=== PATIENT | female | born 1970 | race Caucasian/White ===

== ENCOUNTER → 2017-07-24 | Outpatient (CLI) | payer OTHER ==
[~2017-07-24] VITALS: Ht 167.6 cm; Wt 93.0 kg
[~2017-07-24] MED LIST: ADVAIR 100-501 EACH INH; ALLEGRA ALLERG180 MG PO; AZELASTINE137 MCG/0. NASAL; NEXIUM40 MG PO; SINGULAIR 10 MG10 M1 PO; SYMBICORT160 MCG/4. INH; SYNTHROID150 MCG PO; WELLBUTRIN SR150 MG PO
--- NOTE | ~2017-07-24 | S ---
[facility] [place] [address] SURGICAL PATH RPT PROCEDURE Name: COURTNEY AMADOR Room #: REG [facility].#: [id number] Admission: 07/24/17 Date of : 70 Discharge: Report #: [id number] Path Case #: [id number] PATHOLOGY REPORT COLLECTION DATE: 07/24/2017 RECEIVED DATE: 07/24/2017 SUBMITTING PHYS: Dr. Liborio Hernandez OTHER PHYS: Dr. Artem Garcia SPECIMEN(S) RECEIVED: A.Gastric body rule out H pylori B.Distal esophagus * * * * * * * * * * * * FINAL DIAGNOSIS: A. Gastric mucosa, gastric body rule out H. pylori, endoscopic biopsy: - Moderate reactive gastropathy. - Negative for intestinal metaplasia or atrophy. - Negative for Helicobacter pylori. B. Distal esophagus, rule out Baptiste's, endoscopic biopsy: - Dilated fundic glands compatible with fundic gland polyp as well as focal hyperplastic features. - Negative for intestinal metaplasia (Baptiste's mucosa) or dysplasia. COMMENT: Well-controlled Helicobacter pylori immunohistochemical stain performed on block A1 - negative. (IUV:mml; 07/25/2017) PATHOLOGIST: Katerina Moore M.D. REPORT ELECTRONICALLY SIGNED BY: Katerina Moore M.D. DATE/TIME: 07/25/2017 16:34 * * * * * * * * * * * * GROSS PATHOLOGY: A. Received in formalin labeled "Courtney Marjorie, gastric body, rule out H. pylori," is a segment of villeda soft tissue measuring 0.4 cm in maximum dimension. The specimen is submitted entirely in cassette A1. B. Received in formalin labeled "Courtney Amador, distal esophagus BX, rule out Baptiste's," are 2 segments of villeda soft tissue measuring 0.6 x 0.3 x 0.2 cm in aggregate dimensions and measuring 0.3 cm each in maximum dimension. The specimen is submitted entirely in cassette B1. (TSD; 07/24/2017) [address] [place] [address] SURGICAL PATH RPT PROCEDURE Name: COURTNEY AMADOR Room #: REG [facility].#: [id number] Admission: 07/24/17 Date of : 70 Discharge: Report #: [id number] Path Case #: [id number] CLINICAL HISTORY: Pre-OP DX: GERD Post-OP DX: GERD, abnormal Z line INITIAL CPT CODE(S): A; 30702, 21529 B; 29395 Professional services performed by [facility] [address], [place] [address] Technical services performed by [facility] at [address] [place] [address], [facility] [address] [address]. [facility] [address] [address] PHONE: [phone] DIRECTOR: Eddi Lopez M.D. * * * END OF REPORT * * *
== END | disposition home or self-care (01) ==
LOC: GI 06:23
DX: K31.9 Disease of stomach and duodenum, unspecified (principal); K31.7 Polyp of stomach and duodenum; K21.9 Gastro-esophageal reflux disease without esophagitis; E03.9 Hypothyroidism, unspecified; F32.89 Other specified depressive episodes; F41.8 Other specified anxiety disorders; Z98.890 Other specified postprocedural states; Z79.899 Other long term (current) drug therapy
CPT/HCPCS: 62110; 62900

== ENCOUNTER → 2017-11-29 | Outpatient (CLI) | payer OTHER ==
[2017-11-29 12:20] LABS: HEMATOCRIT 38.1 % (37.0-47.0); HEMOGLOBIN 12.7 gm/dL (12.0-15.0); MCH 27.8 pg (26.0-34.0); MCHC 33.3 g/dL (28.0-37.0); MCV 83.4 fL (80.0-100.0); RBC 4.57 mil/uL (4.20-5.00); RDW 13.6 % (10.5-14.5); WBC 8.3 thou/uL (4.0-11.0)
== END ==
LOC: LABMALL 11:49
PROVIDERS: Internal Medicine Pulmonary Disease
DX: R05 Cough (principal); R06.00 Dyspnea, unspecified; K21.9 Gastro-esophageal reflux disease without esophagitis; G47.19 Other hypersomnia; J30.1 Allergic rhinitis due to pollen; R06.83 Snoring; R53.83 Other fatigue

== ENCOUNTER → 2019-08-18 | Outpatient (CLI) | payer OTHER | LOC: BC 10:37 | DX: Z12.31 Encounter for screening mammogram for malignant neoplasm of breast (principal) ==

== ENCOUNTER → 2020-11-19 | Outpatient (CLI) | payer OTHER ==
[2020-11-19 16:01] LABS: URINE BILIRUBIN NEGATIVE (Negative); URINE BLOOD NEGATIVE (Negative); URINE CLARITY CLEAR; URINE COLOR YELLOW; URINE GLUCOSE-RANDOM* NEGATIVE (Negative); URINE KETONES NEGATIVE (Negative); URINE NITRITE-REFLEX NEGATIVE (Negative); URINE PROTEIN (DIPSTICK) NEGATIVE (Negative); URINE SPECIFIC GRAVITY 1.015 (1.005-1.035); URINE UROBILINOGEN 0.2 E.U./dl (0.2-1.0)
[2020-11-19 16:02] LABS: ABSOLUTE NEUTROPHILS 6.1 thou/uL (1.4-8.2); BASOPHILS 0.8 % (0.0-2.0); EOSINOPHILS 6.6 % (0.0-3.0); HEMATOCRIT 39.2 % (37.0-47.0); HEMOGLOBIN 12.9 gm/dL (12.0-15.0); LYMPHOCYTES 25.5 % (24.0-44.0); MCH 28.4 pg (26.0-34.0); MCHC 32.8 g/dL (28.0-37.0); MCV 86.5 fL (80.0-100.0); MONOCYTES 10.4 % (1.0-8.0); PLATELET COUNT 243 thou/uL (150-400); POLYS 56.7 % (36.0-66.0); RBC 4.53 mil/uL (4.20-5.00); RDW 14.2 % (10.5-14.5); WBC 10.7 thou/uL (4.0-11.0)
[2020-11-19 16:03] LABS: URINE LEUKOCYTES-REFLEX 3+ (Negative)
[2020-11-19 16:16] LABS: CASTS None Seen /LPF (None Seen); SQUAMOUS 0-3 Few /LPF (0-3); URINE WBC-REFLEX 6-15 Few /HPF (0-5)
[2020-11-19 16:17] LABS: BACTERIA-REFLEX 1-9 Few /HPF (None Seen); CRYSTALS None Seen /LPF (None Seen); URINE RBC None Seen /HPF (NONE SEEN)
[2020-11-19 16:18] LABS: ALBUMIN 3.6 g/dL (3.4-5.0); ANION GAP 9 mmol/L (7-16); BUN 17 mg/dL (7-18); CALCIUM 9.2 mg/dL (8.5-10.1); CHLORIDE 104 mmol/L (98-107); CHOLESTEROL 174 mg/dL (<200); CO2 28 mmol/L (21-32); CREATININE 0.9 mg/dL (0.6-1.0); GLUCOSE 110 mg/dL (74-106); HDL CHOLESTEROL 46 mg/dL (>40); LDL CHOLESTEROL 110 mg/dL (<100); POTASSIUM 4.2 mmol/L (3.5-5.1); SGOT 13 U/L (15-37); SGPT 25 U/L (30-65); SODIUM 141 mmol/L (136-145); TC:HDL 3.8 Ratio (Not establshd); TOTAL BILIRUBIN 0.3 mg/dL (0.2-1.0); TOTAL PROTEIN 7.9 g/dL (6.4-8.2); TRIGLYCERIDE 94 mg/dL (<150); VLDL 19 mg/dL (<40)
== END ==
LOC: LAB 14:34
PROVIDERS: ATTEND Nurse Practitioner
DX: Z00.00 Encounter for general adult medical examination without abnormal findings (principal)